=== PATIENT | male | born 1955 | race Caucasian/White ===

== ENCOUNTER 2020-03-20 08:45 | Observation (INO) ==
--- NOTE | 2020-02-15 13:08 | PAT Medication Instructions ---
Medication Instructions Date of Service February 15, 2020 Home Medications Medication Instructions Recorded Sherita Valdivia #1 ea 01/16/20 allopurinol 300 mg PO PM gmdagut-gbadczgakntbd-qerpsfvk [Excedrin Migraine] 1 tab PO Q6H PRN atorvastatin 10 mg PO HS hydrocodone-acetaminophen 1 tab PO Q6H PRN lisinopril 5 mg PO PM metformin 500 mg PO PM metoprolol succinate 50 mg PO PM ASK your surgeon for instructions oabutdp-uvwkkxiwzthef-kseaolzn [Excedrin Migraine] 1 tab PO Q6H PRN Take morning of surgery With a small sip of water, OTHERWISE NOTHING TO EAT OR DRINK AFTER MIDNIGHT: hydrocodone-acetaminophen 1 tab PO Q6H PRN (okay to take up to 4 hours prior to surgery if needed) Take evening before surgery allopurinol 300 mg PO PM atorvastatin 10 mg PO HS hydrocodone-acetaminophen 1 tab PO Q6H PRN (if needed) lisinopril 5 mg PO PM metformin 500 mg PO PM metoprolol succinate 50 mg PO PM Other Notes If you have any questions please call us at [phone] or [phone] or [phone] or [phone]
--- NOTE | 2020-02-18 11:20 | Anesthesiology Consultation ---
Date of Service February 18, 2020 Assessment & Plan (1) Encounter for pre-operative examination: - Awaiting most recent cardiology office visit note (Sobia Sharif NP). Per PAT assessment on 02/17: Travel screen- [facility]ts. Wears mask. No known COVID-19 positive contacts. No current COVID-19 related symptoms. Patient scheduled for preop protocol COVID-19 testing 03/17 (at surgeon's office). Awaiting results. - Check BSG AM DOS Teaching & Discussion Pre-Anesthesia Teaching/Discussion Notes: Instructed NPO after midnight before surgery,except medications with 15 cc of water. Medication instructions provided according to the PAT guidelines. History Surgery Operation Date: 03/20/20 09:20 Proposed Procedures p Right Total Knee Arthroplasty - Eric Cohen MD Height/Weight Height: 5 ft 7 in Weight: 83.4 kg Allergies Allergy/AdvReac Type Severity Reaction Status Date / Time No Known Allergies Allergy Verified 02/11/20 10:40 Medications Home Medications Medication Instructions Recorded Confirmed Last Taken Wheeled Walker #1 ea 01/16/20 01/16/20 Unknown allopurinol 300 mg PO PM 02/11/20 02/11/20 Unknown gwogihk-wcdnnhdfxitfu-keunhvls 1 tab PO Q6H PRN 02/11/20 02/11/20 Unknown [Excedrin Migraine] atorvastatin 10 mg PO HS 02/11/20 02/11/20 Unknown hydrocodone-acetaminophen 1 tab PO Q6H PRN 02/11/20 02/11/20 Unknown lisinopril 5 mg PO PM 02/11/20 02/11/20 Unknown metformin 500 mg PO PM 02/11/20 02/11/20 Unknown metoprolol succinate 50 mg PO PM 02/11/20 02/11/20 Unknown Past Medical History Medical History (Updated 02/18/20 @ 13:13 by Rosa French) Bilateral primary osteoarthritis of knee Chronic back pain Degenerative disc disease Diabetes mellitus, type 2 NIDDM Gout Hearing deficit Hyperlipidemia Hypertension Irregular heart beat ?PVC's/follows with Sobia Edwardsin/SR without arrhythmia per 06/2019 most recent EKG Kidney stones Migraine Pancreatitis hx Exercise / Class Metabolic Activity II 4-5 Yardwork/Stairs/Walk up hill Past Surgical History Surgical History (Updated 02/18/20 @ 13:15 by Rosa French) History of arthroscopy RIGHT KNEE PATELLA REPAIR History of cardiac cath 2018= NO STENTS History of carpal tunnel release RIGHT History of cholecystectomy History of colonoscopy History of tooth extraction Hx of elbow surgery RIGHT Social History Smoking Status: Current every day smoker tobacco type: cigarettes Smoking cigarettes per day: 1- 1.5 PPD Do You Dip or Chew Tobacco: No Hx Alcohol Use: No Hx Substance Use: No substance use type: does not use Review of Systems Patient denies chest pain, shortness of breath, fever, chills, cough, wheezing, palpitations. Physical Exam Vital Signs VITALS BP 132/80 P 74 TEMP 98.4 SP02 95%RA RESP 18 PHYSICAL Full neck and c-spine range of motion. Full TMJ range of motion. TMD 3 finger breaths Mallampati Score 2 Dentition: intact, + crowns (unsure of location) Lungs: clear throughout to auscultation Cardiac: regular rate and rhythm, no murmurs noted Spine: normal Carotid arteries: negative bruit Extremities: no edema Testing Laboratory Results 02/18/20 12:00 PT 10.3 Seconds (9.0-12.0) 02/18/20 12:00 INR 1.0 (0.9-1.1) 02/18/20 12:00 APTT 29.1 Seconds (21.0-31.0) 02/18/20 12:00 Blood Type O Positive 02/18/20 12:00 Antibody Screen NEGATIVE 02/18/20 12:00 01/24/20 WBC 9.54 H/H 16.3/48.5 PLT 235 HGBA1C 5.9% Electrocardiogram Date: 07/24/19 SR at 98bpm. Cannot rule out inferior infarct. "Normal ECG" per report. Chest X-Ray Date: 07/24/19 Findings: + NAD Echocardiogram Date: 11/02/18 EF 53%. No RWMA. Mild LVH. No significant valvular disease.
[2020-02-18 12:36] LABS: Partial Thromboplastin Time 29.1 Seconds (21.0-31.0); Prothrombin Time 10.3 Seconds (9.0-12.0)
[2020-02-18 13:22] LABS: BUN Creatinine Ratio 16.2 (10-20); Calcium 9.2 mg/dl (8.5-10.1); Creatinine Clr Calc Pharmacy 98.8 ml/min; Est GFR (African American) 110.6; Est GFR (Non-African American) 95.4; Potassium 4.1 mmol/L (3.5-5.1)
--- NOTE | 2020-03-14 22:44 | History and Physical Report ---
DATE OF ADMISSION: 03/20/2020 CHIEF COMPLAINT: Bilateral knee pain and discomfort, right side greater than left. HISTORY OF PRESENT ILLNESS: The patient is a 64-year-old gentleman from [place] who presents specifically for surgical treatment of his knees. He has got a 10+ year history of gradually increasing bilateral knee pain and discomfort, right side a bit more than the left. He has been through extensive conservative treatment including various medicines as well as injections. The injections have not helped much at all. He has been taking some hydrocodone for some back issues that helped his knee slightly. He does have a history of right knee arthroscopy in the , they are for some patella issues, but nothing since then. He has difficulty walking any distance. They both swell. He would like to proceed with surgical treatment. PAST MEDICAL HISTORY: 1. Diabetes. 2. Hypertension. 3. Elevated cholesterol. 4. Back pain. 5. Chronic smoking. PAST SURGICAL HISTORY: Include: 1. Right knee arthroscopy and some type of patella surgery in the . 2. Cholecystectomy. 3. Right elbow surgery. ALLERGIES: None. CURRENT MEDICATIONS: 1. Atorvastatin. 2. Lisinopril. 3. Metoprolol. 4. Metformin. 5. Allopurinol. 6. Hydrocodone. SOCIAL HISTORY: A 64-year-old male. He is from [place]. Lives by himself. His daughter to assist in his care. A [id number]-amma history of smoking. No alcohol intake. FAMILY HISTORY: Noncontributory. REVIEW OF SYSTEMS: Negative for neurological problems, vascular problems or bleeding disorders. He is diabetic. He does have a smoking history. Denies any chest pain or shortness of breath. No history of DVT or PE. PHYSICAL EXAMINATION: GENERAL: Shows a pleasant, healthy appearing, middle-aged male. He comes in with his daughter. HEENT: Benign. NECK: Supple, no lymphadenopathy. LUNGS: Clear to auscultation. HEART: Has a regular rate and rhythm. ABDOMEN: Soft, nontender, nondistended. EXTREMITIES: Grossly neurovascularly intact except as follows: Examination of both knees reveals the patient ambulates with a double waddling gait. Examination of the right knee reveals varus alignment with tenderness over the medial joint line. Small knee effusion. Range of motion 5-120. No instability. He has got well-healed portal sites and a small lateral incision. Examination of left knee reveals varus alignment. Small to moderate size knee effusion. He is tender over the medial joint line. Range of motion 5-120. No instability. X-RAYS: X-rays of both knees were reviewed. Shows advanced bilateral knee DJD. He has got complete loss of medial joint space in both knees. He has got cystic changes as well and subchondral sclerosis. The right side is just a bit worse than the left. ASSESSMENT: A 64-year-old male with longstanding bilateral knee pain, degenerative joint disease, unresponsive to conservative treatment. He would now like to proceed with surgery. The right knee is bothered more than the left. PLAN: We talked about treatment. We are going to proceed with right total knee replacement. The risks and benefits of this procedure were explained to the patient and include but not limited to DVT, PE, , infection, neurological injury, vascular injury, bleeding problems, failure to relieve symptoms, incomplete relief of symptoms, need for further surgery in future, fracture, leg length inequality, nerve palsy, etc. The patient understands and desires to proceed. Informed consent was obtained. The patient does have a smoking history and we will likely need a low level nicotine patch in the hospital. We did talk to him about holding his metformin and lisinopril on the morning of surgery and taking his metoprolol. He is hoping to be discharged to home with [facility] and his daughter will assist in his care.
[~2020-03-20 08:45] MED LIST: ACETAMINOPHEN 500 MG TAB PO SCH; BUPIVACAINE 0.25% 30 ML VIAL ONE; BUPIVACAINE 0.5 % 5 MG/1 ML PF 10ML VIAL ONE; BUPIVACAINE LIPOSOME/PF 266 MG, BUPIVACAINE/EPINEPHRINE 50 ML, SODIUM CHLORIDE 0.9% 30 ... INFIL SCH; CEFAZOLIN 2000MG 2,000 MG/15 ML SYR IV SCH; FAMOTIDINE 20 MG TAB PO SCH; GABAPENTIN 600 MG DOSE PO SCH; LR 500ML BOLUS, THEN 15ML/HR IV SCH; LR 60ML/HR IV SCH; METOCLOPRAMIDE HCL 10 MG TABLET PO SCH; TRANEXAMIC ACID 1,000 MG **IV Intra-op IV SCH
--- NOTE | 2020-03-20 09:00 | History & Physical Bridge Note ---
Date of Service March 20, 2020 History & Physical Bridge Note I have examined the patient, reviewed the History & Physical and in the interval since the performance of the History & Physical I have noted the following changes of clinical significance: no changes noted
[2020-03-20] MEDS ORDERED: fentaNYL citrate 100 MCG/2 ML VIAL ONE (10:02)
[2020-03-20] MEDS ORDERED: MIDAZOLAM HCL 1 MG/ML 2ML VIAL ONE ×2 (10:02)
[2020-03-20] MEDS ORDERED: BUPIVACAINE/EPINEPHRINE 0.25% 1:200,000 30 ML VIAL ONE (10:54)
[2020-03-20] MEDS ORDERED: SODIUM CHLORIDE 0.9% PF 50 ML VIAL ONE (10:54)
[2020-03-20] MEDS ORDERED: BUPIVACAINE LIPOSOME 1.3% 266 MG/20 ML VIAL ONE (10:54)
[2020-03-20] MEDS ORDERED: BACITRACIN INJ 50,000 UNIT VIAL ONE (10:54)
[2020-03-20] MEDS ORDERED: PROPOFOL IV EMULSION 10 MG/ML 20 ML VIAL IV ONE (10:57)
[2020-03-20] MEDS ORDERED: PHENYLEPHRINE HCL 10 MG/ML VIAL ONE (10:57)
[2020-03-20] MEDS ORDERED: ONDANSETRON INJ 2 MG/ML 2 ML VIAL ONE (10:57)
[2020-03-20] MEDS ORDERED: LIDOCAINE HCL 2% 2 ML VIAL/AMP(20MG/ML) INFIL ONE (10:57)
[2020-03-20] MEDS ORDERED: ePHEDrine sulfate 50 MG/ML SYR ONE (12:15)
--- NOTE | 2020-03-20 12:43 | Post Operative Brief Note ---
PG Immediate Post Op with CF Date of Surgery March 20, 2020 Pre & Post Diagnosis Operation Date: 03/20/20 10:40 Pre-Op Diagnosis: Right Knee Degenerative Joint Disease Post-Op Diagnosis: Right Knee Degenerative Joint Disease I identified the patient and participated in the time-out.: Yes Procedure Operation Date: 03/20/20 10:40 Actual Procedures p Right Total Knee Arthroplasty(Right) - Eric Cohen MD Surgeon Eric Cohen MD Machine Welder Clayton, PAC Estimated Blood Loss 50 Findings Consistent with Post-Op Diagnosis Fluids 1200 cc Specimens Specimen Description: A. Right knee bone and tissue Drains Pugh Catheter Anesthesia Type Spinal MAC Disposition Accompanied Patient To Recovery: No Disposition: Recovery Room
--- NOTE | 2020-03-20 13:00 | Operative Report ---
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 He had grade 4 oape-gj-vaba disease in all 3 compartments most severe in the medial side. He had tibiofemoral subluxation. He had a fixed varus deformity to his knee. Large knee joint effusion. Pretty significant large posterior medial osteophytes. Fluids 1200 cc. Specimens Right knee sent for pathology. Drains None. Anesthesia Type Spinal MAC Complications none Disposition Accompanied Patient To Recovery: No Disposition: Recovery Room Indications Patient is a 64-year-old gentleman is had a long history of bilateral knee pain discomfort right side greater than left. Been through extensive conservative treatment the past which is become less successful over time. He continued be limited by significant knee pain discomfort. He elected with surgical treatment. Description of Procedure Operative implants consist of: 1. Biomet Vanguard size 70 right posterior by femoral component. 2. Biomet size 71 tibial tray. 3. 10 mm posterior stabilized tibial insert. 4. 31 x 8 all poly-patella. The patient was taken to the operating room identified and placed on the operating table supine position protectors were properly padded. IV antibiotics arrived by anesthesia team. A spinal anesthetic and abductor canal block had provided holding area. Pugh catheter was placed in sterile fashion. Right factor was then placed in the right lower extremities and prepped and draped in usual sterile fashion. The right leg was elevated exsanguinated with use of an Esmarch and turns placed at 300 mmHg. An anterior approach to the right knee was then performed through a longitudinal incision centered over the patella. Sharp dissection was got through subcutaneous tissue down to the extensor mechanism. A medial parapatellar arthrotomy incision was made. Some subperiosteal dissection carried out medially but the fat pad was resected from each patella tendon. Lateral patellofemoral ligament was released. Patella was subluxated laterally and the knee was flexed. The osteophytes were taken off the distal femur. The ACL and PCL were then released from distal femur the tibia subluxate anteriorly. The external tibial alignment jig was then placed in the interface the tibia and adjusted 14 mm medially. Proximal tibial cut was made to move about a millimeter bone from most efficient aspect the medial tibial plateau. The tibia sized to a size 71. Some osteophytes were taken off medial and posterior medially. Attention drawn the femur. The distal femur was entered with a sharp drill. Intramedullary canal was suction. A right 6 degree valgus cutting guide was placed. Distal femoral cutting block was pinned in place. Distal femoral cut was made to take an additional 3 mm of bone off distal femur. The femur was then sized to a size 70. We downsized this just slightly. The AP cutting block was pinned parallel to the epicondylar axis which was 4 degrees of external rotation. The anterior cut, anterior chamfer, posterior cut, posterior chamfer cuts were made. Box cutting guide was placed and adjusted slightly lateral and the box cut was made. The knee was flexed. The remnants of medial lateral menisci were excised. The osteophytes were taken off the posterior aspect of her femur. Trial femoral component was placed. Tibial tray was pinned in maximum external rotation and the drill and stem punch used to create defect in proximal tip for the tibial tray. Knee was then trialed and the 10 mm insert fit most appropriately. Attention drawn the patella. Nupathe the patella was cleaned of all soft tissue. Patella thickness measured 24 mm in thickness was cut down to 15. Was sized to a size 31 patella. Locals were drilled for 31 patella. Lateral osteophyte is moved. Patella button was placed. Knee was taken through range of motion and the patella tracked nicely with no thumbs test. Attention drawn to placing permanent components. All trial components were removed. A bone plug was placed in the distal femur limit blood loss put a double batch [place] G cement was mixed. A Biomet Vanguard size 70 right posterior by femoral component, size 71 tibial tray, 10 mm posterior box polyethylene insert, and a 31 x 8 all poly-patella were then cemented in place. Knee was brought out in full extension until cement hardened. Final cement check was then performed. The pericapsular tissues were injected with total 100 cc of combination of 20 cc of Exparel, 30 cc normal saline, 50 cc of quarter percent Marcaine with epinephrine. Patient did receive 1 g tranexamic acid. The tourniquet was then let down for final tourniquet time of 52 minutes. Hemostasis assured use electrocautery. Extensor mechanism closed with combination 1 PDS suture #1 Vicryl suture in caakvq-tb-ilbgy fashion. Extensor mechanism checked found to be intact and the subcutaneous tissue then closed with 2 Dexon suture in a buried interrupted fashion skin was closed skin suma. Leg was then cleaned dried and sterile dressed composed Xeroform, 4 x 4's, sterile cast padding, Frederick bandage were applied. Patient then transferred to the recovery room in stable condition. Patient tolerated procedure well there are no complications. Emir Arnold, my physician electrician station assistant, was present for the entire procedure. His assistance was required and essential to proper patient positioning, prepping and draping, surgical exposure, performing the technical aspects of the operation, placing the implants, closure of the wound, and placement of the sterile bandage. I attest to the content of the Intraoperative Record and any orders documented therein. Any exceptions are noted below.
--- NOTE | 2020-03-20 13:07 | XRay Report ---
XR knee RT 1 or 2V routine CLINICAL HISTORY: Surgical Post Op COMPARISON: None. DISCUSSION: There are postsurgical changes of a total right knee arthroplasty and patellar resurfacin g. The femoral tibial components appear well seated. Overlying skin suma are evident. There is gas within the soft tissues consistent with recent surgery IMPRESSION: Postsurgical changes of a total right knee arthroplasty ACT 112: Negative or not required by law. Electronically signed by: Jer Cabrera M.D. 03/20/2020 1:06 PM
[2020-03-20] MEDS ORDERED: ePHEDrine sulfate 50 MG/ML AMP ONE (13:08)
[2020-03-20] MEDS ORDERED: ePHEDrine sulfate 50 MG/ML AMP IV PRN (13:13)
[2020-03-20] MEDS ORDERED: ATROPINE SULFATE 0.1 MG/ML 10ML SYR IV PRN (13:13)
[2020-03-20] MEDS ORDERED: ePHEDrine sulfate 50 MG/ML AMP IM ONE (13:13)
[2020-03-20] MEDS: SODIUM CHLORIDE 0.9% 1000ML 1,000 ML IV SCH (14:45)
[2020-03-20] MEDS ORDERED: METOCLOPRAMIDE HCL INJ 5 MG/ML 2 ML VIAL IV PRN (14:49)
[2020-03-20] MEDS ORDERED: MAGNESIUM HYDROXIDE SUSP 30 ML UDC PO PRN (14:49)
[2020-03-20] MEDS ORDERED: TAMSULOSIN HCL 0.4 MG CAP PO PRN (14:49)
[2020-03-20] MEDS ORDERED: OXYCODONE HCL IR 5 MG TAB (IMMEDIATE RELEASE) PO PRN (14:49)
[2020-03-20] MEDS ORDERED: GLUCAGON FOR INJ 1 MG VIAL SQ PRN (14:49)
[2020-03-20] MEDS ORDERED: DEXTROSE 50% 50 ML SYRINGE IV PRN (14:49)
[2020-03-20] MEDS ORDERED: ONDANSETRON INJ 2 MG/ML 2 ML VIAL IV PRN (14:49)
[2020-03-20] MEDS ORDERED: GLUCOSE 10 TABS/TUBE PO PRN (14:49)
[2020-03-20] MEDS ORDERED: CARBOHYDRATES FOR HYPOGLYCEMIA PO PRN (14:49)
[2020-03-20] MEDS ORDERED: NALOXONE HCL 0.4 MG/1 ML VIAL/CARP IV PRN (14:49)
[2020-03-20] MEDS ORDERED: HYDROmorphone INJ 0.5 MG/0.5 ML SYR IV PRN (14:49)
[2020-03-20] MEDS ORDERED: ALUMINUM/MAGNESIUM SUSP 30 ML UDC PO PRN (14:49)
[2020-03-20] MEDS ORDERED: bisacodyL 10 MG SUPP PR PRN (14:49)
[2020-03-20] MEDS ORDERED: GLUCOSE 40% GEL 15 GM TUBE PO PRN (14:49)
--- NOTE | 2020-03-20 15:03 | Pharmacy Report ---
Glycemic Control Consultation - Date of Service March 20, 2020 - Scope Scope: Glycemic Pharmacist consulted for glycemic control and to write orders per [facility] inpatient glycemic control protocol. - Objective Weight: 84.9 kg Accuchecks BSG (last 24hrs): 03/20/20 03/20/20 09:15 12:50 POC Glucose 129 H 108 H - Recent Pertinent Medications Outpatient Anti-diabetic Regimen: * metformin 500 mg PO HS * A1c is unknown but ordered Risk Factors for Insulin Resistance: * Recent Surgery: POD 0 * Diet: * Mechanical Ventilation: - Assessment & Plan Assessment & Plan: ASSESSMENT: * Mr Reynolds is a 64 y/o M with a PMH of T2DM on one oral medication who presents for knee surgery. Patient's fasting BSG was 129 mg/dL * Pt is maintained on oral antidiabetic agents as an outpatient * Oral agents are not recommended for inpatient use d/t drug interactions, changing PO intake, and difficulty titrating for acute hyper/hypoglycemia. ADA recommends re-initiating outpatient oral agents 1-2 days prior to discharge if/when appropriate if they were held on admission. * Start weight-based stress of 2 Novolog for now. One time lantus dose of 0.2 units/kg for tonight if blood sugar trends above 150 mg/dL. * ADA & AACE recommend a goal blood sugar range 140-180 mg/dl for the majority of critically ill & non-critically ill patients. However, more stringent targets may be selected in individual cases. Will utilize more stringent goal of 110-140mg/dl based on patient age & comorbidities. Additionally, tighter glycemic control is warranted to facilitate wound healing. PLAN FOR INPATIENT GLYCEMIC CONTROL: * Holding outpatient oral diabetes medications - consider restarting 24 hours post op depending on diet and renal function * Basal insulin * Lantus 15 units SQ HS if BSG > 150 mg/dL * Bolus insulin * NovoLog per scale ACHS or Q6hrs while NPO * Goal Range: Low 110 mg/dL - High 140 mg/dL * Correction Factor: 30 mg/dL/unit * Nutritional / Prandial insulin per carb ratio of 1 unit per 9 grams CHO consumed * Please note that the plan above was derived based on current level of insulin resistance and hospital stress. These recommendations are appropriate for inpatient admission only. Plan of care upon discharge will need to be reassessed to avoid potential outpatient hypo/hyperglycemia. Thank you.
[2020-03-20] MEDS ORDERED: PHARMACY GLYCEMIC MGMT CONSULT PRN (15:04)
--- NOTE | 2020-03-20 15:05 | Anesthesiology Progress Note ---
Date of Service March 20, 2020 Anesthesia Post Procedure Vital Signs Vital Signs: Temp Pulse Pulse Pulse Resp BP Pulse Ox 03/20/20 14:45 36.5 C 71 18 104/64 93 03/20/20 14:35 74 14 103/59 L 97 03/20/20 14:30 36.4 C L 72 16 104/66 97 03/20/20 14:20 68 14 105/71 97 03/20/20 14:10 72 14 105/62 96 03/20/20 14:00 73 15 97/57 L 97 03/20/20 13:50 72 22 106/55 L 98 03/20/20 13:40 70 20 113/65 98 03/20/20 13:30 70 19 105/68 97 03/20/20 13:20 73 14 99/56 L 98 03/20/20 13:17 71 14 99/62 L 97 03/20/20 13:14 70 13 98/60 L 97 03/20/20 13:12 71 13 94/60 L 97 03/20/20 13:09 72 14 91/59 L 97 03/20/20 13:07 73 16 104/61 96 03/20/20 13:05 74 20 88/57 L 97 03/20/20 13:00 76 15 100/60 96 03/20/20 12:55 72 12 123/69 97 03/20/20 12:50 54 L 14 146/81 H 99 03/20/20 12:49 75 13 82/54 L 98 03/20/20 12:46 36.4 C L 78 14 96/56 L 98 03/20/20 09:57 36.9 C 77 18 145/90 H 96 03/20/20 09:11 37.3 C 86 18 130/89 95 Transfer of Care Handoff Completed per policy Notes Mental Status: alert / awake / arousable and participated in evaluation Nausea / Vomiting: adequately controlled Pain: adequately controlled Airway Patency, RR, SpO2: stable & adequate BP & HR: stable & adequate Hydration State: stable & adequate Neuraxial Anesthesia: was administered and sensory block is resolving Anesthetic Complications: no major complications apparent and Pt Satisfied with anesthetic care
[2020-03-20] MEDS: Scopolamine CHECK PATCH PLACEMENT SCH ×2 (15:57→23:47)
[2020-03-20] MEDS: EXCEDRIN MIGRAINE: ORDER AWAITING ACTION SCH ×2 (15:57→23:48)
[2020-03-20] MEDS: KETOROLAC 30 MG/ML VIAL IV SCH ×2 (17:03→21:04)
[2020-03-20] MEDS: ASCORBIC ACID 500 MG TAB PO SCH (17:06)
[2020-03-20] MEDS: FERROUS GLUCONATE 324 MG TAB PO SCH (17:06)
[2020-03-20] MEDS: INSULIN ASPART 100 UNITS/ML 3 ML PEN SC SCH ×3 (17:08→22:23)
[2020-03-20] MEDS: CEFAZOLIN 2000MG 2,000 MG/15 ML SYR IV SCH (18:37)
[2020-03-20] MEDS ORDERED: TRANEXAMIC ACID / 0.7% NACL 1,000 MG/100 ML BAG IV SCH (19:00)
[2020-03-20] MEDS ORDERED: LANTUS PER UNIT CHARGE SQ SCH (21:00)
[2020-03-20] MEDS: ASPIRIN 81 MG ECTAB PO SCH (21:03)
[2020-03-20] MEDS: METOPROLOL SUCC 50MG EXT REL TAB PO SCH (21:03)
[2020-03-20] MEDS: TAPENTADOL HCL ER 50 MG TABCR PO SCH (21:04)
[2020-03-20] MEDS: allopurinoL 300 MG TAB PO SCH (21:04)
[2020-03-20] MEDS: DOCUSATE SODIUM 100 MG CAP PO SCH (21:04)
[2020-03-20] MEDS: ATORVASTATIN 10 MG TAB PO SCH (21:04)
[2020-03-20] MEDS: SENNA 8.6 MG TAB PO SCH (21:04)
[2020-03-20] MEDS: lisinopriL 5 MG TAB PO SCH (21:04)
[2020-03-21] MEDS: KETOROLAC 30 MG/ML VIAL IV SCH ×4 (03:47→21:23)
[2020-03-21] MEDS: CEFAZOLIN 2000MG 2,000 MG/15 ML SYR IV SCH (03:47)
[2020-03-21] MEDS: SODIUM CHLORIDE 0.9% 1000ML 1,000 ML IV SCH (04:01)
[2020-03-21 06:08] LABS: Hematocrit (blood only) 40.4 % (42-52); Hemoglobin 13.7 g/dL (14.0-18.0); Mean Corpuscular Hemoglobin 31.1 pg (25-34); Mean Corpuscular Hgb Conc 33.9 g/dL (32-36); Mean Corpuscular Volume 91.6 fL (80-100); Mean Platelet Volume 10.1 fL (7.4-10.4); Platelet Count 199 K/uL (130-400); RDW Coefficient of Variation 13.6 % (11.5-14.5); RDW Standard Deviation 45.6 fL (36.4-46.3); Red Blood Count 4.41 M/uL (4.7-6.1); White Blood Count 10.95 K/uL (4.8-10.8)
[2020-03-21 06:13] LABS: Estimated Average Glucose 143 mg/dl; Hemoglobin A1C 6.6 % (4.5-5.6)
[2020-03-21 06:55] LABS: BUN Creatinine Ratio 16.4 (10-20); Calcium 8.7 mg/dl (8.5-10.1); Creatinine Clr Calc Pharmacy 83.6 ml/min; Est GFR (African American) 100.2; Est GFR (Non-African American) 86.5
--- NOTE | 2020-03-21 08:17 | Anesthesiology Progress Note ---
Date of Service March 21, 2020 Anesthesia Post Procedure Vital Signs Vital Signs: Temp Pulse Pulse Pulse Resp BP BP 03/21/20 07:24 36.8 C 74 16 134/87 03/21/20 03:48 37.4 C 81 16 133/75 03/20/20 23:41 37.0 C 77 16 128/73 03/20/20 21:01 75 134/79 03/20/20 17:55 36.7 C 76 16 123/70 03/20/20 16:44 36.7 C 61 16 130/66 03/20/20 15:44 36.4 C L 73 16 117/68 03/20/20 15:15 36.4 C L 68 18 114/69 03/20/20 14:45 36.5 C 71 18 104/64 03/20/20 14:35 74 14 103/59 L 03/20/20 14:30 36.4 C L 72 16 104/66 03/20/20 14:20 68 14 105/71 03/20/20 14:10 72 14 105/62 03/20/20 14:00 73 15 97/57 L 03/20/20 13:50 72 22 106/55 L 03/20/20 13:40 70 20 113/65 03/20/20 13:30 70 19 105/68 03/20/20 13:20 73 14 99/56 L 03/20/20 13:17 71 14 99/62 L 03/20/20 13:14 70 13 98/60 L 03/20/20 13:12 71 13 94/60 L 03/20/20 13:09 72 14 91/59 L 03/20/20 13:07 73 16 104/61 03/20/20 13:05 74 20 88/57 L 03/20/20 13:00 76 15 100/60 03/20/20 12:55 72 12 123/69 03/20/20 12:50 54 L 14 146/81 H 03/20/20 12:49 75 13 82/54 L 03/20/20 12:46 36.4 C L 78 14 96/56 L 03/20/20 09:57 36.9 C 77 18 145/90 H 03/20/20 09:11 37.3 C 86 18 130/89 Pulse Ox 03/21/20 07:24 95 03/21/20 03:48 94 03/20/20 23:41 95 03/20/20 21:01 03/20/20 17:55 95 03/20/20 16:44 95 03/20/20 15:44 93 03/20/20 15:15 93 03/20/20 14:45 93 03/20/20 14:35 97 03/20/20 14:30 97 03/20/20 14:20 97 03/20/20 14:10 96 03/20/20 14:00 97 03/20/20 13:50 98 03/20/20 13:40 98 03/20/20 13:30 97 03/20/20 13:20 98 03/20/20 13:17 97 03/20/20 13:14 97 03/20/20 13:12 97 03/20/20 13:09 97 03/20/20 13:07 96 03/20/20 13:05 97 03/20/20 13:00 96 03/20/20 12:55 97 03/20/20 12:50 99 03/20/20 12:49 98 03/20/20 12:46 98 03/20/20 09:57 96 03/20/20 09:11 95 Pain Intensity Right Knee: Pain Intensity: 5 Notes Mental Status: alert / awake / arousable and participated in evaluation Patient Amnestic to Procedure: Yes Nausea / Vomiting: adequately controlled Pain: adequately controlled Airway Patency, RR, SpO2: stable & adequate BP & HR: stable & adequate Hydration State: stable & adequate Neuraxial Anesthesia: was administered and sensory block resolved Anesthetic Complications: no major complications apparent and Pt Satisfied with anesthetic care
[2020-03-21] MEDS: EXCEDRIN MIGRAINE: ORDER AWAITING ACTION SCH (08:41)
[2020-03-21] MEDS: Scopolamine CHECK PATCH PLACEMENT SCH ×2 (08:41→15:42)
[2020-03-21] MEDS: ASPIRIN 81 MG ECTAB PO SCH ×2 (08:46→21:23)
[2020-03-21] MEDS: TAPENTADOL HCL ER 50 MG TABCR PO SCH ×2 (08:46→21:23)
[2020-03-21] MEDS: DOCUSATE SODIUM 100 MG CAP PO SCH ×2 (08:46→21:23)
[2020-03-21] MEDS: FERROUS GLUCONATE 324 MG TAB PO SCH ×2 (08:46→17:47)
[2020-03-21] MEDS: ASCORBIC ACID 500 MG TAB PO SCH ×2 (08:46→17:47)
[2020-03-21] MEDS: MULTIVITAMIN TAB PO SCH (08:46)
[2020-03-21] MEDS: INSULIN ASPART 100 UNITS/ML 3 ML PEN SC SCH ×4 (08:49→21:29)
--- NOTE | 2020-03-21 08:54 | Progress Notes ---
DATE: 03/21/2020 SUBJECTIVE: A 64-year-old gentleman postop day 1 from right knee replacement. He is doing pretty well. Knee is pretty sore this morning. Denies any chest pain or shortness of breath. Not feeling dizzy or lightheaded. OBJECTIVE: VITAL SIGNS: Temperature 36.8. Vital signs stable. GENERAL: Shows a pleasant, middle-aged male. He is lying in bed and looks reasonably comfortable. LUNGS: Clear to auscultation. HEART: Has a regular rate and rhythm. ABDOMEN: Soft, nontender, nondistended. EXTREMITIES: Grossly neurovascularly intact except as follows. Examination of the right leg reveals the dressing to be clean, dry and intact. Leg is well aligned. He can dorsiflex and plantarflex his foot appropriately. He is neurologically intact. LABORATORY DATA: His hemoglobin is 13.7. Hematocrit 40.4. White cell count 10.95. Electrolytes are stable. ASSESSMENT: A 64-year-old male diabetic postop day 1 from right knee replacement, doing reasonably well. His pain is reasonably well controlled. He is neurologically intact. PLAN: 1. DVT prophylaxis including thigh-high TEDs, SCDs, and aspirin twice a day. 2. PT/OT. He can weightbear as tolerated. Right total knee protocol. 3. Pain control, doing pretty well with current pain regimen. May have to adjust some a little depending on how his pain progresses. 4. Disposition: He is planning to be discharged to home. His daughter is assisting in his care. We will likely set up with some home health.
[2020-03-21] MEDS ORDERED: METFORMIN HCL 500 MG TAB PO SCH (16:30)
[2020-03-21] MEDS: allopurinoL 300 MG TAB PO SCH (21:23)
[2020-03-21] MEDS: SENNA 8.6 MG TAB PO SCH (21:23)
[2020-03-21] MEDS: METOPROLOL SUCC 50MG EXT REL TAB PO SCH (21:23)
[2020-03-21] MEDS: lisinopriL 5 MG TAB PO SCH (21:23)
[2020-03-21] MEDS: ATORVASTATIN 10 MG TAB PO SCH (21:23)
[2020-03-22] MEDS: Scopolamine CHECK PATCH PLACEMENT SCH ×2 (00:07→08:00)
[2020-03-22] MEDS: KETOROLAC 30 MG/ML VIAL IV SCH ×2 (04:59→09:16)
[2020-03-22] MEDS: TAPENTADOL HCL ER 50 MG TABCR PO SCH (07:59)
[2020-03-22] MEDS: DOCUSATE SODIUM 100 MG CAP PO SCH (07:59)
[2020-03-22] MEDS: MULTIVITAMIN TAB PO SCH (07:59)
[2020-03-22] MEDS: FERROUS GLUCONATE 324 MG TAB PO SCH (08:00)
[2020-03-22] MEDS: ASCORBIC ACID 500 MG TAB PO SCH (08:00)
[2020-03-22] MEDS: ASPIRIN 81 MG ECTAB PO SCH (08:00)
[2020-03-22] MEDS: INSULIN ASPART 100 UNITS/ML 3 ML PEN SC SCH (08:04)
--- NOTE | 2020-03-22 09:19 | Progress Notes ---
DATE: 03/22/2020 SUBJECTIVE: A 64-year-old gentleman postop day 2 from right knee replacement. He is doing better today. Pain is improved. No chest pain or shortness of breath. Had a pretty good night. Not feeling dizzy or lightheaded. OBJECTIVE: VITAL SIGNS: Temperature 37.3. Vital signs stable. GENERAL: Shows a pleasant, middle-aged male. He is sitting up in bed, looks pretty comfortable this morning. EXTREMITIES: Examination of the right leg reveals the leg to be well aligned. Dressing is clean, dry, and intact. He is neurologically intact. Calf is soft and supple. ASSESSMENT: A 64-year-old gentleman postop day 2 from right knee replacement, doing pretty well. Pain is controlled. He is neurologically intact. PLAN: 1. DVT prophylaxis including thigh-high TEDs, SCDs, and aspirin twice a day. 2. PT/OT. Weight bear as tolerated. Right total knee protocol. 3. Pain control, doing pretty well with current pain regimen. 4. Disposition: Plan to discharge to home with some home health later today.
--- NOTE | 2020-03-30 06:42 | Discharge Summary ---
Date of Service March 30, 2020 Admission HPI Per Admitting Provider Documented in the H & P Admission Exam (Per Admitting) Constitutional Documented in the H & P Discharge Data Consultations 03/20/20 14:49 Consult Case Management - Discharge Planning Routine Procedures Performed Operation Date: 03/20/20 10:40 Actual Procedures p Right Total Knee Arthroplasty(Right) - Eric Cohen MD Hospital Course (1) Status post total right knee replacement: This patient is a 64 year old male admitted on 03/20/20 and underwent total knee replacement. He tolerated the procedure well and there were no complications. Transferred to the PACU post op and later to the orthopedic floor for further care. He was given ancef for antibiotic prophylaxis. He was also given NICHOLE stockings, SCDs, and aspirin for DVT prophylaxis. Hemoglobin, hematocrit, and vital signs were monitored during his hospital stay and remained stable. Did not require any blood transfusions. There were no complications during his hospital stay. By post op day #2 the patient was tolerating a diabetic diet, pain was reasonably controlled with oral pain medicine, and he was participating in physical therapy. On post op day #2 the patient was discharged home and set up with home health care. He was given printed discharge instructions including prescriptions for extra strength tylenol, aspirin, and oxycodone. Continue physical therapy, weight bearing as tolerated. Continue NICHOLE stockings. Follow up approximately 2 weeks post op or sooner if there are problems or concerns. Coding Level of Care Code None Diagnoses Status post total right knee replacement Z96.651
== END 2020-03-22 10:31 | disposition home health service (06) ==
LOC: ASU 08:45 → 3E 08:45

== ENCOUNTER 2020-09-03 08:18 | Observation (INO) ==
--- NOTE | 2020-08-30 11:33 | History and Physical Report ---
DATE OF ADMISSION: 09/03/2020 CHIEF COMPLAINT: Persistent left knee pain and discomfort. HISTORY OF PRESENT ILLNESS: The patient is a 64-year-old gentleman from [place] who presents now for surgical treatment of his left knee. He has got a long history of bilateral knee pain and discomfort that has gradually gotten worse over time. We did do a right knee replacement back in February and he is recovered from this quite nicely. His left knee continues to bother him. He has been through extensive conservative care including injections and medicines which have become less successful over time. He has got global pain. The more he is on it, the more it hurts. It swells more as the day goes on. He limps more as the day goes on. He would like to have his left knee fixed. PAST MEDICAL HISTORY: 1. Diabetes. 2. Hypertension. 3. Elevated cholesterol. 4. Back pain. 5. Smoking history. PAST SURGICAL HISTORY: Include: 1. Right knee arthroscopy done in the . 2. Right total knee replacement on 03/20/2020. 3. Cholecystectomy. 4. Right elbow surgery. ALLERGIES: None. CURRENT MEDICINES: Include: 1. Atorvastatin 10 mg a day. 2. Lisinopril 5 mg. 3. Metoprolol 50 mg a day. 4. Metformin 500 mg a day. 5. Allopurinol 300 mg. 6. Hydrocodone for back pain. SOCIAL HISTORY: A 64-year-old male. He lives in [place]. He does live by himself. His daughter helps to take care of him. He does smoke. No alcohol intake. FAMILY HISTORY: Noncontributory. REVIEW OF HISTORY: Negative for diabetes, neurologic problem, vascular problems or bleeding disorders. No history of DVT or PE. Does have a smoking history. PHYSICAL EXAMINATION: GENERAL: Elderly pleasant, middle-aged male, looks to be in pretty good health. HEENT: Benign. NECK: Supple, no lymphadenopathy. LUNGS: Clear to auscultation. HEART: Has a regular rate and rhythm. ABDOMEN: Soft, nontender, nondistended. EXTREMITIES: Grossly neurovascularly intact except as follows. Examination of both knees reveals the patient walks independently. Examination of the left knee reveals a varus deformity. He is tender over the medial joint line. He has got some bony hypertrophy medially. Range of motion 5-120. No instability. No pain with hip motion. Examination of the right knee reveals well-healed incision. He has got an anatomic alignment. Range of motion 0-120. X-RAYS: X-rays of the left knee from previously reviewed. It shows advanced left knee DJD. He has got complete loss of medial joint space. He has got subchondral sclerosis. He has got osteophytes off the medial femoral condyle and medial tibial plateau. He has got some lateral compartment osteophytes as well. ASSESSMENT: A 64-year-old gentleman now about 6 months out from a right knee replacement with advanced left knee degenerative joint disease. He has failed conservative treatment and would like to have his left knee replaced. PLAN: We will take him to the operating room and do a left total knee replacement. The risks and benefits of this procedure were explained to the patient and include but not limited to DVT, PE, , infection, neurological injury, vascular injury, bleeding problem, pain, limited range of motion, stiffness, failure to relieve symptoms, incomplete relief of symptoms, need for further surgery in future, fracture, leg length inequality, nerve palsy, etc. The patient understands and desires to proceed. Informed consent was obtained. The patient does live by himself and his daughter is going to assist in his care. We talked about holding his metformin the morning of surgery. He did not do well with the oxycodone previously and we will likely use tramadol for postoperative pain control. He will likely need a patch in the hospital due to the smoking history. We will hold the lisinopril the morning of surgery and take the metoprolol.
--- NOTE | 2020-09-01 11:38 | Anesthesiology Consultation ---
Date of Service September 01, 2020 Assessment & Plan (1) Encounter for pre-operative examination: CASE R/S FROM 06/2020 due to covid surge capacity protocol. EKG is not out of date (> 1 yr old). Will update AM DOS. COVID Status: As of 08/29 nurse assessment, patient denies travel to endemic area, known exposure/sick contacts, or symptoms of COVID19. Preoperative COVID19 testing completed on 08/28, results NEGATIVE ('not detected'). Cardiology Clearance 06/16/20 = "seen for follow-up of cardiac arrhythmia and cardiomyopathy. Echo was obtained prior to this office visit. Will be having left knee replacement in June 2020. Patient has intermittent chest discomfort with sitting/driving. Last <1-minute and resolves. This is unchanged from last visit. Also had episodes of palpitationslasted 15-30 seconds and resolve. History of PVCs. Echo reviewed. Metoprolol increased secondary to palpitations that are short-lived. Complaints of chest discomfort are not consistent with angina. Stress testing would not be ordered. Follow-up 6 months." Right TKA 03/20/2020 = done under SAB at L3. 1 attempt. No anesthesia issues noted. Chart Review Chart Review: Acceptable Risk for Surgery (pending acceptable EKG AM DOS) and Patient NOT seen in Pre Admission Testing History Surgery Operation Date: 09/03/20 07:15 Proposed Procedures p Left Total Knee Arthroplasty - Eric Cohen MD Height/Weight Height: 5 ft 7 in Weight: 81.647 kg Allergies Allergy/AdvReac Type Severity Reaction Status Date / Time No Known Allergies Allergy Verified 08/12/20 13:23 Medications Home Medications Medication Instructions Recorded Confirmed Last Taken Wheeled Walker #1 ea 01/16/20 08/12/20 Unknown Excedrin Migraine 1 tab PO Q6H PRN 02/11/20 08/12/20 03/18/20 allopurinol 300 mg PO PM 02/11/20 08/12/20 03/19/20 21:00 atorvastatin 10 mg PO HS 02/11/20 08/12/20 03/19/20 21:00 lisinopril 5 mg PO PM 02/11/20 08/12/20 03/19/20 21:00 metformin 500 mg PO PM 02/11/20 08/12/20 03/19/20 21:00 metoprolol succinate 50 mg PO PM 02/11/20 08/12/20 03/19/20 21:00 miscellaneous medical supply #1 ea 04/03/20 08/12/20 Unknown amoxicillin 500 mg tablet 2,000 mg PO ONCE #4 tab 04/08/20 08/12/20 Unknown hydrocodone-acetaminophen 1 tab PO Q6H PRN 06/10/20 08/12/20 Unknown Past Medical History Medical History Cardiomyopathy Non-ischemic- per cardio records. EF 50-55% on echo 06/13/20. Degenerative disc disease Chronic back pain Diabetes mellitus, type 2 NIDDM Gout Hearing deficit Hyperlipidemia Hypertension Irregular heart beat Has hx of PVCs per cardio note/follows with [facility] Defrain/SR without arrhythmia per 06/2019 most recent EKG F/U DR LUI Kidney stones Migraine Pancreatitis hx Past Family History Family History Other No family history of adverse response to anesthesia Past Surgical History Surgical History History of arthroscopy RIGHT KNEE PATELLA REPAIR History of cardiac cath 2018= NO STENTS- "negative for sign of CAD" per cardio note History of carpal tunnel release RIGHT History of cholecystectomy History of colonoscopy History of tooth extraction History of total knee replacement RIGHT 02/2020 Hx of elbow surgery RIGHT Social History Smoking Status: Current every day smoker tobacco type: cigarettes Smoking cigarettes per day: 20 - 30 daily Do You Dip or Chew Tobacco: No Hx Alcohol Use: No Hx Substance Use: No substance use type: does not use Testing Laboratory Results Blood Type O Positive 08/28/20 08:48 Antibody Screen NEGATIVE 08/28/20 08:48 08/28/20 WBC: 8.28 H/H: 16.8/49.5 PLATELETS: 228 SODIUM: 140 POTASSIUM: 4.2 CHLORIDE: 106 CO2: 28 BUN: 17 CREATININE: 0.85 GLUCOSE: 135 PT: 9.8 INR: 1.0 A1C 03/21/20 = 6.6% Echocardiogram Date: 06/13/20 EF: 50-55% LV cavity size is normal. Wall thickness is normal. Systolic function is at the lower limits of normal. Wall motion is normal. There are no regional wall motion abnormalities. Right ventricle cavity size and systolic function are normal. Unable to calculate systolic pressure. Valve structures not well visualized. No Doppler evidence of significant valvular stenosis or regurgitation.
[~2020-09-03 08:18] MED LIST changes: -BUPIVACAINE 0.25% 30 ML VIAL ONE; -CEFAZOLIN 2000MG 2,000 MG/15 ML SYR IV SCH; +EPINEPHrine INJ 1 MG/ML AMP ONE; +ROPIVACAINE 0.5% 5 MG/ML 30 ML VIAL ONE; +ceFAZolin 2000MG 2,000 MG/15 ML SYR IV SCH
--- NOTE | 2020-09-03 08:49 | History & Physical Bridge Note ---
Date of Service September 03, 2020 History & Physical Bridge Note I have examined the patient, reviewed the History & Physical and in the interval since the performance of the History & Physical I have noted the following changes of clinical significance: no changes noted
[2020-09-03] MEDS ORDERED: fentaNYL citrate 100 MCG/2 ML VIAL IV PRN (08:57)
[2020-09-03] MEDS ORDERED: LABETALOL HCL IV 5 MG/ML 20ML IV PRN (08:57)
[2020-09-03] MEDS ORDERED: HYDROmorphone INJ 1 MG/ML SYRINGE IV PRN (08:57)
[2020-09-03] MEDS ORDERED: PHENYLEPHRINE 100MCG/ML 5ML SYR IV PRN (08:57)
[2020-09-03] MEDS ORDERED: MEPERIDINE HCL 25 MG/ML CARP/VIAL IV PRN (08:57)
[2020-09-03] MEDS ORDERED: ATROPINE SULFATE 0.1 MG/ML 10ML SYR IV PRN (08:57)
[2020-09-03] MEDS ORDERED: ONDANSETRON INJ 2 MG/ML 2 ML VIAL IV PRN ×2 (08:57→15:27)
[2020-09-03] MEDS ORDERED: ePHEDrine sulfate 50 MG/ML AMP IV PRN (08:57)
[2020-09-03] MEDS ORDERED: MIDAZOLAM HCL 1 MG/ML 2ML VIAL ONE (10:01)
[2020-09-03] MEDS ORDERED: PROPOFOL IV EMULSION 10 MG/ML 20 ML VIAL IV ONE (10:26)
[2020-09-03] MEDS ORDERED: LIDOCAINE HCL 2% 2 ML VIAL/AMP(20MG/ML) INFIL ONE (10:26)
[2020-09-03] MEDS ORDERED: BUPIVACAINE 0.25% 30 ML VIAL ONE (11:06)
[2020-09-03] MEDS ORDERED: BACITRACIN INJ 50,000 UNIT VIAL ONE (11:06)
[2020-09-03] MEDS ORDERED: EPINEPHrine INJ 1 MG/ML AMP ONE (11:07)
[2020-09-03] MEDS ORDERED: SODIUM CHLORIDE 0.9% PF 50 ML VIAL ONE (11:07)
[2020-09-03] MEDS ORDERED: BUPIVACAINE LIPOSOME 1.3% 266 MG/20 ML VIAL ONE (11:08)
[2020-09-03] MEDS ORDERED: PHENYLEPHRINE 100MCG/ML 5ML SYR ONE (12:21)
--- NOTE | 2020-09-03 12:38 | Electrocardiogram Report ---
Test Reason : Blood Pressure : / mmHG Vent. Rate : 073 BPM Atrial Rate : 073 BPM P-R Int : 160 ms QRS Dur : 094 ms QT Int : 384 ms P-R-T Axes : 044 078 081 degrees QTc Int : 423 ms Normal sinus rhythm Nonspecific T wave abnormality Abnormal ECG No previous ECGs available Confirmed by Marquise Modi [id number]) on 09/03/2020 12:37:58 PM Referred By: Eric Cohen Confirmed By:Marquise Modi
--- NOTE | 2020-09-03 12:53 | Post Operative Brief Note ---
PG Immediate Post Op with CF Date of Surgery September 03, 2020 Pre & Post Diagnosis Operation Date: 09/03/20 10:40 Pre-Op Diagnosis: Left Knee DJD, Left Knee Pain Post-Op Diagnosis: Left Knee DJD, Left Knee Pain I identified the patient and participated in the time-out.: Yes Procedure Operation Date: 09/03/20 10:40 Actual Procedures p Left Total Knee Arthroplasty(Left) - Eric Cohen MD Surgeon Eric Cohen MD Insulation Board Calender Operator JULIO C Arnold Estimated Blood Loss 50 Findings Consistent with Post-Op Diagnosis Fluids 1500 cc. Specimens Specimen Description: A) Left knee- bone & tissue Drains Pugh Catheter Anesthesia Type Spinal MAC Complications none Disposition Accompanied Patient To Recovery: No Disposition: Recovery Room
--- NOTE | 2020-09-03 13:16 | Operative Report ---
Post Operative Report Pre & Post Diagnosis Operation Date: 09/03/20 10:40 Pre-Op Diagnosis: Left Knee DJD, Left Knee Pain Post-Op Diagnosis: Left Knee DJD, Left Knee Pain I identified the patient and participated in the time-out.: Yes Procedure Operation Date: 09/03/20 10:40 Actual Procedures p Left Total Knee Arthroplasty(Left) - Eric Cohen MD Surgeon Eric Cohen MD Radiation Monitor JULIO C Arnold Estimated Blood Loss 50 Findings Consistent with Post-Op Diagnosis Operative findings revealed advanced left knee DJD with extensive grade 4 [id number] disease of the medial and patellofemoral compartments. He had a varus deformity to his knee. Moderate sized knee joint effusion. Osteophytes primarily in the medial compartment. Fluids 1500 cc. Specimens Left knee sent for pathology. Drains None. Anesthesia Type Spinal MAC Complications none Disposition Accompanied Patient To Recovery: No Disposition: Recovery Room Indications Patient is 64-year-old fairly active gentleman said a long history of bilateral knee pain discomfort. Has been through extensive conservative treatment in the past. This became less successful. He has right knee replaced back in February and is done well from this. He elected proceed with left total knee arthroplasty. Description of Procedure Operative implants consisted of: 1. Biomet Vanguard size 70 left posterior stabilized femoral component. 2. Biomet size 75 tibial tray. 3. 10 mm posterior stabilized polyethylene insert. 4. 31 x 8 all polypatella. The patient was taken to the operating identified and placed on the operating table supine position protectors were properly padded. IV antibiotics arrived by anesthesia team. Spinal anesthetic and abductor canal block had provided holding area. Pugh catheter was placed in sterile fashion. Left factor was then placed in the left lower extremities and prepped and draped in usual sterile fashion. The left leg was elevated exsanguinated with use of an Esmarch and turns placed at 300 mmHg. An anterior approach to the left knee was then performed to longitudinal incision centered over the patella. Sharp dissection was carried through subcutaneous tissue down to the extensor mechanism. A medial parapatellar arthrotomy incision was made. Some subperiosteal dissection was carried out medially. The fat pad was resected from each patella tendon. The lateral patellofemoral ligament was released. Patella was subluxated laterally and the knee was flexed. The osteophytes were taken off distal femur. The ACL and PCL were then released from distal femur and the tibia subluxated anteriorly. The external tibial alignment jig was then placed in the interface the tibia and adjusted 14 mm medially. Proximal tibial cut was made to remove about a millimeter or 2 of bone from most efficient aspect medial tibial plateau. Some osteophytes were taken off medial and posterior medially. The tibia was sized to a size 75. Attention drawn the femur. The distal femur was done with a sharp drill. Intramedullary canal was suction. A left 6 degree valgus cutting guide was placed. Distal femoral cutting block was pinned in place. Distal femoral cut was made to take an additional 3 mm of bone off distal femur. The femur was then sized to a size 70. We did downsize a slightly. The AP cutting block was pinned parallel to the epicondylar axis which was 5 degrees external rotation. Anterior cut, anterior chamfer, posterior cut, posterior chamfer cuts were made. Box cutting guide was placed in just slight lateral and the box cut was made. The knee was flexed. The remnants of the medial lateral menisci were excised. The osteophytes were taken off the posterior aspect of the femur. A trial femoral component was placed. The tibial tray was pinned in maximum external rotation and the drill and stem punch were used to create the defect in proximal to for the tibial tray. The knee was then trialed and the 10 mm insert fit most appropriately. Attention drawn the patella. Patella was cleaned of all soft tissues. Patella thickness measured 22 mm in thickness was cut down to 13. Was sized to a size 31 patella. Locals were drilled for 31 patella. Lateral osteophytes removed. Patella button was placed. Knee was taken through range of motion patella tracked nicely with no thumbs test. Attention drawn to place the permanent components. All trial components were removed. Bone plug was placed in the distal femur limit blood loss put a double batch [place] G cement was mixed. A Biomet Vanguard size 70 left posterior stabilized femoral component, size 75 tibial tray, 10 mm posterior stabilized polyethylene insert, and a 31 x 8 all polypatella were then cemented in place. The knee was brought out in full extension total cement hardened. Final cement check was then performed. P ericapsular tissues were injected with total of 100 cc of combination of 20 cc of Exparel, 30 cc normal saline, 50 cc of quarter percent Marcaine with epinephrine. Patient did receive 1 g tranexamic acid. The tech was then let down for final tourniquet time 50 minutes. Hemostasis assured with electrocautery. Extensor mechanism closed with combination 1 PDS suture #1 Vicryl suture in [id number] fashion. Extensor mechanism checked found to be intact and the subcutaneous tissue then closed with 2 Dexon suture in a buried interrupted fashion skin was closed skin suma. Legs then cleaned dried a sterile dressing both Xeroform, 4 x 4's, sterile cast padding, Frederick bandage were applied. Patient then transferred to the recovery room in stable condition. Patient tolerated procedure well and there were no complications. Emir Arnold, my physician operator assistant i cementing, was present for the entire procedure. His assistance was essential and required for appropriate patient positioning, prepping and draping, surgical exposure, performing the technical details of the operation, placement the implants, closure of the wound, and placement of the sterile bandage. I attest to the content of the Intraoperative Record and any orders documented therein. Any exceptions are noted below.
--- NOTE | 2020-09-03 13:30 | XRay Report ---
XR knee LT 1 or 2V routine CLINICAL HISTORY: Postoperative evaluation. COMPARISON: Knee radiographs May 02, 2020. FINDINGS: Alignment of the total left knee arthroplasty is anatomic. There is no periprosthetic frac ture or unexpected radiopaque foreign body. There are skin suma. IMPRESSION: Expected findings following total left knee arthroplasty. ACT 112: Negative or not required by law. Electronically signed by: Lucas Acosta M.D. 09/03/2020 1:29 PM
--- NOTE | 2020-09-03 15:10 | Anesthesiology Progress Note ---
Date of Service September 03, 2020 Anesthesia Post Procedure Vital Signs Vital Signs: Temp Pulse Resp BP Pulse Ox 09/03/20 14:55 66 13 104/63 96 09/03/20 14:45 63 18 87/56 L 96 09/03/20 14:35 63 15 83/56 L 96 09/03/20 14:25 65 16 98/57 L 97 09/03/20 14:15 78 19 102/59 L 97 09/03/20 14:05 36.8 C 71 20 105/68 95 09/03/20 13:55 67 14 93/54 L 95 09/03/20 13:45 69 19 98/62 L 98 09/03/20 13:35 68 12 109/54 L 98 09/03/20 13:25 72 17 96/52 L 95 09/03/20 13:15 72 15 104/58 L 98 09/03/20 13:05 73 14 104/67 98 09/03/20 12:59 36.5 C 71 15 95/52 L 97 09/03/20 09:09 36.8 C 77 18 136/96 97 Pain Intensity Left Knee: Pain Intensity: 0 Transfer of Care Handoff Completed per policy Notes Mental Status: alert / awake / arousable Patient Amnestic to Procedure: Yes Nausea / Vomiting: adequately controlled Pain: adequately controlled Airway Patency, RR, SpO2: stable & adequate BP & HR: stable & adequate Hydration State: stable & adequate Neuraxial Anesthesia: was administered and sensory block is resolving Anesthetic Complications: no major complications apparent and Pt Satisfied with anesthetic care
[2020-09-03] MEDS ORDERED: DEXTROSE 50% 50 ML SYRINGE IV PRN (15:27)
[2020-09-03] MEDS ORDERED: GLUCAGON FOR INJ 1 MG VIAL SQ PRN (15:27)
[2020-09-03] MEDS ORDERED: traMADol HCL 50 MG TABLET PO PRN (15:27)
[2020-09-03] MEDS ORDERED: diphenhydrAMINE Capsule 25 MG CAP PO PRN (15:27)
[2020-09-03] MEDS ORDERED: MAGNESIUM HYDROXIDE SUSP 30 ML UDC PO PRN (15:27)
[2020-09-03] MEDS ORDERED: bisacodyL 10 MG SUPP PR PRN (15:27)
[2020-09-03] MEDS ORDERED: NALOXONE HCL 0.4 MG/1 ML VIAL/CARP IV PRN (15:27)
[2020-09-03] MEDS ORDERED: METOCLOPRAMIDE HCL INJ 5 MG/ML 2 ML VIAL IV PRN (15:27)
[2020-09-03] MEDS ORDERED: GLUCOSE 10 TABS/TUBE PO PRN (15:27)
[2020-09-03] MEDS ORDERED: CARBOHYDRATES FOR HYPOGLYCEMIA PO PRN (15:27)
[2020-09-03] MEDS ORDERED: ALUMINUM/MAGNESIUM SUSP 30 ML UDC PO PRN (15:27)
[2020-09-03] MEDS ORDERED: TAMSULOSIN HCL 0.4 MG CAP PO PRN (15:27)
[2020-09-03] MEDS ORDERED: GLUCOSE 40% GEL 15 GM TUBE PO PRN (15:27)
[2020-09-03] MEDS ORDERED: HYDROmorphone INJ 0.5 MG/0.5 ML SYR IV PRN (15:27)
[2020-09-03] MEDS ORDERED: PHARMACY GLYCEMIC MGMT CONSULT PRN (16:01)
--- NOTE | 2020-09-03 16:11 | Pharmacy Report ---
Pharmacy Glycemic Sign Off Nt - Date of Service September 03, 2020 - Assessment & Plan ASSESSMENT: * Pharmacy was consulted by Dr. Cohen on 09/03/20 for glycemic control and to write orders per [facility] inpatient glycemic control protocol. * Patient is POD #0 s/p L TKA. His preoperative BSG was 106 mg/dL. Postoperative BSGs have been 99-84 mg/dL. * Patient takes Metformin 500 mg PO PM at home with a HbA1c of 6.6%. * Will restart Metformin this evening. Will order Novolog in the event patient would become hyperglycemic based on weight/stress of 1. * Do not anticipate further changes in patient status that would quickly deteriorate glycemic control (i.e. patient to be NPO for upcoming procedure, steroids tapering, starting tube feedings, etc). * Please see recommendations for outpatient antidiabetic regimen below. PLAN FOR INPATIENT GLYCEMIC CONTROL: * Continue NovoLog per scale ACHS/Q6hrs while NPO * Goal range = 110 - 140 mg/dl * CF = 55 mg/dl/unit * CR = 1 unit for every 8 g CHO consumed * Pharmacy is signing off of glycemic consult and will no longer be making adjustments to inpatient regimen. Please feel free to re-consult if needed. Thank you. DISCHARGE RECOMMENDATIONS: * A1c 6.6% on 03/21/2020. Continue Metformin 500 mg PO PM upon discharge.
--- NOTE | 2020-09-03 16:14 | Progress Notes ---
DATE: 09/03/2020 SUBJECTIVE: A 64-year-old gentleman postop from a left knee replacement. He is doing pretty well. He does not have any feeling yet in his legs. No chest pain or shortness of breath. Not feeling dizzy or lightheaded. OBJECTIVE: VITAL SIGNS: Temperature 36.5. Vital signs stable. GENERAL: Shows a pleasant, middle-aged male. He is sitting up on bed, looks pretty comfortable. LUNGS: Clear to auscultation. HEART: Has a regular rate and rhythm. ABDOMEN: Soft, nontender, nondistended. EXTREMITIES: Grossly neurovascularly intact except as follows. Examination of the left lower extremity reveals the leg to be well aligned. Dressing is clean, dry and intact. His toes are pink with brisk refill. He has got good distal pulse. No significant sensory or motor function yet. X-RAYS: X-rays of the left knee from recovery room were reviewed. It shows a left cemented posterior stabilized total knee arthroplasty. Components looked to be in good position. No signs of problems. ASSESSMENT: A 64-year-old gentleman postop from a left knee replacement, doing well. Block is still in effect. PLAN: 1. DVT prophylaxis including thigh-high TEDs, SCDs, and aspirin twice a day. 2. PT/OT. Weight bear as tolerated. Left total knee protocol. 3. Pain control, doing well with current pain regimen. We will obviously have to adjust things as the spinal wears off. 4. IV antibiotics x24 hours. 5. Disposition: Plan to discharge to home. He is going to have home health and his daughter's assistance.
[2020-09-03] MEDS: SODIUM CHLORIDE 0.9% 1000ML 1,000 ML IV SCH (16:47)
[2020-09-03] MEDS: KETOROLAC 30 MG/ML VIAL IV SCH ×2 (16:47→21:08)
[2020-09-03] MEDS: Scopolamine CHECK PATCH PLACEMENT SCH ×3 (16:47→23:37)
[2020-09-03] MEDS: ACETAMINOPHEN 500 MG TAB PO SCH ×2 (16:48→21:07)
[2020-09-03] MEDS: ASCORBIC ACID 500 MG TAB PO SCH (17:39)
[2020-09-03] MEDS: metFORMIN HCL 500 MG TAB PO SCH (17:39)
[2020-09-03] MEDS: INSULIN ASPART 100 UNITS/ML 3 ML PEN SC SCH ×2 (17:41→20:41)
[2020-09-03] MEDS ORDERED: TRANEXAMIC ACID / 0.7% NACL 1,000 MG/100 ML BAG IV SCH (19:00)
[2020-09-03] MEDS: ceFAZolin 2000MG 2,000 MG/15 ML SYR IV SCH (19:42)
[2020-09-03] MEDS: DOCUSATE SODIUM 100 MG CAP PO SCH (20:21)
[2020-09-03] MEDS: ASPIRIN 81 MG ECTAB PO SCH (20:21)
[2020-09-03] MEDS: METOPROLOL SUCC 50MG EXT REL TAB PO SCH (20:21)
[2020-09-03] MEDS: ATORVASTATIN 10 MG TAB PO SCH (20:22)
[2020-09-03] MEDS: SENNA 8.6 MG TAB PO SCH (20:22)
[2020-09-03] MEDS: lisinopril 5 MG TAB PO SCH (20:22)
[2020-09-03] MEDS: allopurinoL 300 MG TAB PO SCH (20:22)
[2020-09-04] MEDS: SODIUM CHLORIDE 0.9% 1000ML 1,000 ML IV SCH (02:52)
[2020-09-04] MEDS: KETOROLAC 30 MG/ML VIAL IV SCH ×4 (03:33→21:13)
[2020-09-04] MEDS: ceFAZolin 2000MG 2,000 MG/15 ML SYR IV SCH (03:38)
[2020-09-04] MEDS: ACETAMINOPHEN 500 MG TAB PO SCH ×3 (06:06→21:13)
[2020-09-04 06:25] LABS: Hemoglobin 13.4 g/dL (14.0-18.0); Mean Corpuscular Hemoglobin 30.5 pg (25-34); Mean Corpuscular Hgb Conc 33.5 g/dL (32-36); Mean Corpuscular Volume 91.1 fL (80-100); Mean Platelet Volume 9.3 fL (7.4-10.4); Platelet Count 163 K/uL (130-400); RDW Standard Deviation 50.2 fL (36.4-46.3); Red Blood Count 4.39 M/uL (4.7-6.1); White Blood Count 9.94 K/uL (4.8-10.8)
[2020-09-04 06:59] LABS: BUN Creatinine Ratio 20.8 (10-20); Calcium 8.3 mg/dl (8.5-10.1); Creatinine Clr Calc Pharmacy 102.3 ml/min; Est GFR (African American) 112.4; Est GFR (Non-African American) 96.9; Potassium 3.9 mmol/L (3.5-5.1)
[2020-09-04] MEDS: MULTIVITAMIN TAB PO SCH (08:36)
[2020-09-04] MEDS: DOCUSATE SODIUM 100 MG CAP PO SCH ×2 (08:36→21:12)
[2020-09-04] MEDS: ASCORBIC ACID 500 MG TAB PO SCH ×2 (08:36→17:31)
[2020-09-04] MEDS: ASPIRIN 81 MG ECTAB PO SCH ×2 (08:36→21:13)
[2020-09-04] MEDS: Scopolamine CHECK PATCH PLACEMENT SCH ×3 (08:36→23:00)
[2020-09-04] MEDS: NICOTINE 14 MG/24 HR PATCH TD SCH (08:37)
[2020-09-04] MEDS: INSULIN ASPART 100 UNITS/ML 3 ML PEN SC SCH ×4 (08:37→21:16)
--- NOTE | 2020-09-04 08:45 | Progress Notes ---
DATE: 09/04/2020 SUBJECTIVE: A 64-year-old gentleman postop day 1 from left knee replacement. He is doing pretty well. Had a reasonable night. Pain has been controlled. No chest pain or shortness of breath. Not feeling dizzy or lightheaded. OBJECTIVE: VITAL SIGNS: Temperature 36.7. Vital signs stable. GENERAL: Shows a pleasant elderly male. He is sitting up in bed, looks pretty comfortable this morning. EXTREMITIES: Examination of the left leg reveals the leg to be well aligned. Dressing is clean, dry, and intact. He can dorsiflex and plantarflex his foot appropriately. He is neurologically intact. LABORATORY DATA: Hemoglobin 13.4. Hematocrit 40.0. Electrolytes are stable. ASSESSMENT: A 64-year-old gentleman postop day 1 from a left knee replacement, doing pretty well. No significant nausea yet. Pain is controlled. He is neurologically intact. PLAN: 1. DVT prophylaxis including thigh-high TEDs, SCDs, and aspirin twice a day. 2. PT/OT. Weight bear as tolerated. Left total knee protocol. 3. Pain control, doing well with current pain regimen. He has had a lot of nausea in the past and we are going to try and stick to tramadol. 4. Disposition: Plan to discharge to home with some home health once medically stable. We will do therapy today. Likely discharge tomorrow.
[2020-09-04] MEDS: metFORMIN HCL 500 MG TAB PO SCH ×2 (15:49→17:31)
[2020-09-04] MEDS: allopurinoL 300 MG TAB PO SCH (21:12)
[2020-09-04] MEDS: SENNA 8.6 MG TAB PO SCH (21:12)
[2020-09-04] MEDS: lisinopril 5 MG TAB PO SCH (21:12)
[2020-09-04] MEDS: METOPROLOL SUCC 50MG EXT REL TAB PO SCH (21:12)
[2020-09-04] MEDS: ATORVASTATIN 10 MG TAB PO SCH (21:13)
[2020-09-05] MEDS: KETOROLAC 30 MG/ML VIAL IV SCH ×2 (03:32→09:04)
[2020-09-05] MEDS: ACETAMINOPHEN 500 MG TAB PO SCH (05:54)
[2020-09-05] MEDS: ASPIRIN 81 MG ECTAB PO SCH (08:18)
[2020-09-05] MEDS: ASCORBIC ACID 500 MG TAB PO SCH (08:18)
[2020-09-05] MEDS: MULTIVITAMIN TAB PO SCH (08:19)
[2020-09-05] MEDS: DOCUSATE SODIUM 100 MG CAP PO SCH (08:19)
[2020-09-05] MEDS: Scopolamine CHECK PATCH PLACEMENT SCH (08:20)
[2020-09-05] MEDS: NICOTINE 14 MG/24 HR PATCH TD SCH (08:20)
[2020-09-05] MEDS: INSULIN ASPART 100 UNITS/ML 3 ML PEN SC SCH (09:02)
--- NOTE | 2020-09-05 10:57 | Progress Notes ---
DATE: 09/05/2020 SUBJECTIVE: A 64-year-old gentleman, postoperative day 2 from left knee replacement. He is doing pretty well. No significant nausea. No chest pain or shortness of breath. Pain is well controlled. OBJECTIVE: VITAL SIGNS: Temperature 36.6. Vital signs stable. GENERAL: Shows a pleasant, middle-aged male. He is sitting up in bed, looks pretty comfortable. EXTREMITIES: Examination of the left leg reveals the dressing to be clean, dry and intact. Leg is well aligned. Calf is soft and supple. He can dorsiflex and plantarflex his foot appropriately. He is neurologically intact. ASSESSMENT: A 64-year-old gentleman postoperative day 2 from left knee replacement, doing well. He seems to be doing well from the pain standpoint and no nausea with the pain medicines at this time. PLAN: 1. DVT prophylaxis including thigh-high TEDs, SCDs, and aspirin twice a day. 2. PT/OT. He can weightbear as tolerated. Left total knee protocol. 3. Pain control, doing pretty well with current pain regimen. We will send him home on some tramadol and some Zofran as needed for nausea. 4. Disposition: Plan to discharge to home with some home health later today.
--- NOTE | 2020-09-08 15:41 | Discharge Summary ---
Date of Service September 08, 2020 Discharge Data Consultations 09/03/20 15:27 Consult Case Management - Discharge Planning Routine Procedures Performed Operation Date: 09/03/20 10:40 Actual Procedures p Left Total Knee Arthroplasty(Left) - Eric Cohen MD Hospital Course (1) Status post total left knee replacement: This patient is a 64 year old male admitted on 09/03/20 and underwent total knee arthroplasty. He tolerated the procedure well and there were no complications. Transferred to the PACU post op and later to the orthopedic floor for further care. He was given ancef for antibiotic prophylaxis. He was also given NICHOLE stockings, SCDs, and aspirin for DVT prophylaxis. Hemoglobin, hematocrit, and vital signs were monitored during his hospital stay and remained stable. Did not require any blood transfusions. There were no complications during his hospital stay. By post op day #2 the patient was tolerating a diabetic diet, pain was reasonably controlled with oral pain medicine, and he was participating in physical therapy. On post op day #2 the patient was discharged home and set up [facility]. He was given printed discharge instructions including prescriptions for extra strength tylenol, aspirin, tramadol, and zofran. Continue physical therapy, weight bearing as tolerated. Continue NICHOLE stockings. Follow up approximately 2 weeks post op or sooner if there are problems or concerns. Coding Level of Care Code None Diagnoses Status post total left knee replacement Z96.652
== END 2020-09-05 12:27 | disposition home health service (06) ==
LOC: 3E 08:18 → ASU 08:18